=== PATIENT | male | born 1985 | race African-American/Black ===

== ENCOUNTER 2019-11-14 22:15 | Inpatient (IN) ==
[2019-11-14] MEDS ORDERED: ACETAMINOPHEN 500 MG TAB PO STA (22:28)
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
[2019-11-14] MEDS ORDERED: SODIUM CHLORIDE 0.9% 1000ML 1,000 ML IV SCH (23:00)
[2019-11-14 23:15] LABS: Basophils # (auto) 0.02 K/uL (0-0.2); Basophils % (auto) 0.3 %; Eosinophils # (auto) 0.05 K/uL (0-0.5); Eosinophils % (auto) 0.7 %; Hematocrit (blood only) 39.8 % (42-52); Hemoglobin 13.2 g/dL (14.0-18.0); Lymphocytes % (auto) 25.4 %; Mean Corpuscular Hemoglobin 28.1 pg (25-34); Mean Corpuscular Hgb Conc 33.2 g/dL (32-36); Mean Corpuscular Volume 84.9 fL (80-100); Mean Platelet Volume 11.3 fL (7.4-10.4); Monocytes # (auto) 0.91 K/uL (0.11-0.59); Monocytes % (auto) 12.2 %; Neutrophils % (auto) 61.4 %; Platelet Count 156 K/uL (130-400); RDW Coefficient of Variation 14.9 % (11.5-14.5); Red Blood Count 4.69 M/uL (4.7-6.1); White Blood Count 7.48 K/uL (4.8-10.8)
[2019-11-14 23:21] LABS: iSTAT Creatinine 1.4 mg/dl (0.6-1.3); iSTAT Hemoglobin 14.3 g/dl (14.0-18.0); iSTAT Ionized Calcium 1.23 mmol/l (1.12-1.32); iSTAT Potassium 4.1 mmol/L (3.3-5.0)
[2019-11-14] MEDS ORDERED: IOVERSOL 100ml IV ONE (23:24)
[2019-11-14 23:32] LABS: Alanine Aminotransferase 21 U/L (12-78); Albumin Level 3.7 gm/dl (3.4-5.0); Aspartate Aminotransferase 44 U/L (15-37); BUN Creatinine Ratio 11.6 (10-20); Blood Urea Nitrogen 18 mg/dl (7-18); Calcium 9.2 mg/dl (8.5-10.1); Carbon Dioxide 30 mmol/L (21-32); Chloride 108 mmol/L (98-107); Creatinine Clr Calc Pharmacy 67.3 ml/min; Est GFR (African American) 66.3; Est GFR (Non-African American) 57.2; Glucose 79 mg/dl (70-99); Sodium 141 mmol/L (136-145)
[2019-11-14 23:36] LABS: Albumin Globulin Ratio 0.9 (0.9-2); Alkaline Phosphatase 57 U/L (45-117); Bilirubin,Total 0.5 mg/dl (0.2-1); Total Protein 7.7 gm/dl (6.4-8.2); Troponin I < 0.015 ng/ml (0-0.045)
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
[2019-11-15 00:01] LABS: Creatine Kinase 1424 U/L (39-308)
[2019-11-15] MEDS ORDERED: MoRPHine SULFATE 4 MG/ML 1 ML CARP\\VIAL IV ONE (00:13)
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
--- NOTE | 2019-11-15 03:04 | History & Physical Report ---
Date of Service November 15, 2019 Assessment & Plan (1) Pneumothorax, closed, traumatic: This patient had chest trauma via a helmet. He has most likely a lateral nondisplaced fracture of the sixth rib. He has a small pneumothorax. He is not short of breath. I would choose to keep him on the 10 L of oxygen and repeat his chest x-ray in the morning. If the pneumothorax has increased in size he will need a thoracostomy tube. History of Present Illness Chief Complaint: Right-sided chest pain Primary Care Provider: NO PCP This is a 34-year-old male who presented to the emergency room with complaint of pain on the right side of his chest after having been struck by a helmet during adult football game. He had some very mild shortness of breath. That is resolved. He has been on [address] scan and chest x-ray show small pneumothorax. There is also evidence of a lateral fracture of the sixth rib. There is no hemothorax. He has not had any fever or chills. He has had no abdominal pain. He has had no nausea or vomiting. Allergies Allergy/AdvReac Type Severity Reaction Status Date / Time No Known Allergies Allergy Mild Unverified 11/14/19 22:40 Home Medications Home Medications Medication Instructions Recorded Confirmed Type acetaminophen [Tylenol Extra 1,000 mg PO Q6H PRN 11/14/19 11/14/19 History Strength] ibuprofen 400 mg PO Q6H PRN 11/14/19 11/14/19 History Past Med/Surg History Social History Smoking Status: Never smoker Feels Safe at Home: Yes Review of Systems Review of Systems: All systems reviewed & are unremarkable except as noted in HPI & below Physical Exam Constitutional: no acute distress Respiratory: Slightly decreased breath sounds on the right but no rales or rhonchi Cardiovascular: Rate/Rhythm: regular rate and regular rhythm Gastrointestinal (Abdomen): Inspection/Auscultation: normal bowel sounds; abdomen not distended Percussion/Palpation: abdomen soft; abdomen nontender Musculoskeletal: no cyanosis or clubbing, extremities motor strength 5/5 Skin: no rashes, warm and dry Lymphatic: no cervical lymphadenopathy Results & Data Results & Data ([facility]) Vital Signs (Past 12 Hours) Vital Signs Temp Pulse Resp BP Pulse Ox 11/15/19 02:30 69 15 129/67 98 11/15/19 02:00 62 18 124/71 100 08/02/20 01:30 69 18 130/67 100 11/15/19 01:00 64 19 141/78 H 100 11/15/19 00:30 67 21 132/80 100 11/15/19 00:00 70 13 130/83 100 11/14/19 23:33 71 14 142/86 H 100 11/14/19 23:13 72 16 142/78 H 99 11/14/19 22:36 97 11/14/19 22:17 36.8 C 71 20 139/89 97 Laboratory Results 11/14/19 11/14/19 11/14/19 Range/Units 23:08 23:00 23:00 WBC 7.48 (4.8-10.8) K/uL RBC 4.69 L (4.7-6.1) M/uL Hgb 13.2 L (14.0-18.0) g/dL POC Hgb 14.3 (14.0-18.0) g/dl Hct 39.8 L (42-52) % POC Hct 42 (42-52) % MCV 84.9 (80-100) fL MCH 28.1 (25-34) pg MCHC 33.2 (32-36) g/dL RDW Std Deviation 46.0 (36.4-46.3) fL RDW Coeff of Kyaw 14.9 H (11.5-14.5) % Plt Count 156 (130-400) K/uL MPV 11.3 H (7.4-10.4) fL Immature Gran % (Auto) 0.0 % Neut % (Auto) 61.4 % Lymph % (Auto) 25.4 % Canadian % (Auto) 12.2 % Eos % (Auto) 0.7 % Baso % (Auto) 0.3 % Neut # (Auto) 4.60 (1.4-6.5) K/uL Lymph # (Auto) 1.90 (1.2-3.4) K/uL Canadian # (Auto) 0.91 H (0.11-0.59) K/uL Eos # (Auto) 0.05 (0-0.5) K/uL Baso # (Auto) 0.02 (0-0.2) K/uL Immature Gran # (Auto) 0.00 (0.00-0.02) K/uL POC Sodium 142 (135-144) mmol/L Sodium 141 (136-145) mmol/L POC Potassium 4.1 (3.3-5.0) mmol/L Potassium 4.0 (3.5-5.1) mmol/L POC Chloride 103 (101-112) mmol/L Chloride 108 H (98-107) mmol/L Carbon Dioxide 30 (21-32) mmol/L POC Total CO2 27 (24-31) mmol/L Anion Gap 3.0 (3-11) POC Anion Gap 17.0 (16-25) mmol/L POC BUN 18 (7-18) mg/dl BUN 18 (7-18) mg/dl Creatinine 1.54 H (0.6-1.4) mg/dl POC Creatinine 1.4 H (0.6-1.3) mg/dl Est Cr Clr Drug Dosing 67.3 ml/min Est GFR ( Amer) 66.3 Est GFR (Non-Af Amer) 57.2 BUN/Creatinine Ratio 11.6 (10-20) Glucose 79 (70-99) mg/dl POC Glucose (other) 82 (70-99) mg/dl Calcium 9.2 (8.5-10.1) mg/dl POC Ioniz Calcium Jeremiah 1.23 (1.12-1.32) mmol/l Total Bilirubin 0.5 (0.2-1) mg/dl AST 44 H (15-37) U/L ALT 21 (12-78) U/L Alkaline Phosphatase 57 (45-117) U/L Total Creatine Kinase 1424 H (39-308) U/L Troponin I < 0.015 (0-0.045) ng/ml Total Protein 7.7 (6.4-8.2) gm/dl Albumin 3.7 (3.4-5.0) gm/dl Globulin 4.0 (2.5-4.0) gm/dl Albumin/Globulin Ratio 0.9 (0.9-2) (1) Pneumothorax, closed, traumatic Encounter type: initial encounter Qualified Code(s): S27.0XXA - Traumatic pneumothorax, initial encounter
[2019-11-15] MEDS ORDERED: MoRPHine SULFATE 4 MG/ML 1 ML CARP\\VIAL IV PRN (03:10)
[2019-11-15] MEDS ORDERED: ONDANSETRON INJ 2 MG/ML 2 ML VIAL IV PRN (03:51)
--- NOTE | 2019-11-15 06:23 | CT Scan Report ---
CT abd pelvis IV con only CLINICAL HISTORY: Abdominal pain status post trauma COMPARISON STUDY: None. TECHNIQUE: Patient was scanned in a dynamic helical fashion during intravenous administration of 93 c c of Optiray 320 A dose lowering technique was utilized adhering to the principles of ALARA. CT DOSE: 621.37 mGy.cm FINDINGS: Lower chest: There is a right anterior pneumothorax with pleural separation of 18 mm. There is mild r ight lower lobe and right middle lobe atelectatic change. Liver: The contrast-enhanced liver is normal in size, contour, and attenuation. There is no intrahepa tic biliary ductal dilatation. The hepatic veins and portal veins are patent. Gallbladder: Unremarkable. Spleen: Normal in size and attenuation. Pancreas: Unremarkable. Adrenal glands: Unremarkable. Kidneys: There is symmetric renal cortical enhancement. The kidneys are normal in size without hydron ephrosis. Bowel: There are no transition zones indicate bowel obstruction. There is no pathologic interloop flu id. There are no extraluminal gas collections. No acute inflammatory changes are visualized. Peritoneum: There is no intraperitoneal free air or abdominal ascites. Vasculature: The abdominal aorta is normal in course and caliber. Adenopathy: None. Pelvic viscera: The bladder, and pelvic viscera are unremarkable. Skeletal structures: No destructive osseous lesions are seen. IMPRESSION: 1. Right-sided pneumothorax 2. No evidence of acute abdominal or pelvic injury ACT 112: Negative or not required by law. Electronically signed by: Rashi Bernabe M.D. 11/15/2019 6:21 AM
--- NOTE | 2019-11-15 06:45 | CT Scan Report ---
CT OF THE CHEST WITH IV CONTRAST CLINICAL HISTORY: Chest pain status post trauma TORUS OF BREATH COMPARISON STUDY: No previous studies for comparison. TECHNIQUE: Following the IV administration of 93 mL of Optiray-320, CT of the thorax was performed f rom the thoracic inlet to the lung bases. Images are reviewed in the axial, sagittal, and coronal khurram bobby. IV contrast was administered without complication. A dose lowering technique was utilized adher ing to the principles of ALARA. CT DOSE: FINDINGS: Thyroid: Imaged portions of the thyroid gland are normal in appearance. Thoracic aorta: The thoracic aorta is normal in course and caliber, noting standard 3-vessel arch emmanuelle kenny. No aneurysm or dissection is seen. Pulmonary vasculature: The pulmonary trunk is normal in caliber. There are no central filling defects identified to suggest pulmonary embolus. Note that this examination was not protocoled for the evalu ation of pulmonary emboli. HEART: The heart is normal in size and configuration, without pericardial effusion. Lungs and pleural spaces: There is a right-sided pneumothorax with maximal pleural separation of 2.5 cm. There are groundglass opacities within the right middle lobe suspicious for a pulmonary contusion . There is a tiny cystic space possibly representing a posttraumatic pneumatocele. There are no signi ficant pleural effusions. There are right lower lobe atelectatic changes. Mediastinum: There is no evidence of mediastinal hematoma. There is no CT evidence of acute aortic in jury. There is no pathologic adenopathy. Yuki: There is no evidence of pathologic hilar adenopathy Axilla: There is no evidence of pathologic axillary lymphadenopathy Upper abdomen: Partially visualized upper abdominal viscera is within normal limits. Skeletal structures: There is right-sided subcutaneous emphysema. There is a nondisplaced fracture th e right sixth rib. IMPRESSION: 1. Nondisplaced right sixth rib fracture 2. Right-sided pneumothorax with pleural separation of 25 mm 3. Suspected right middle lobe pulmonary contusion with a tiny posttraumatic pneumatocele ACT 112: Negative or not required by law. Electronically signed by: Rashi Bernabe M.D. 11/15/2019 6:44 AM
--- NOTE | 2019-11-15 06:50 | XRay Report ---
XR ribs RT min 3V w CXR1V CLINICAL HISTORY: hit in right ribs, eval trauma trauma COMPARISON STUDY: No previous studies for comparison. FINDINGS: Nondisplaced cortical fracture right sixth rib. Right-sided pneumothorax with a maximum ple ural separation of 2.2 cm. Lungs otherwise appear clear. IMPRESSION: 1. Nondisplaced cortical fracture right sixth rib. 2. Right-sided pneumothorax with a maximum pleural separation of 2.2 cm. ACT 112: Negative or not required by law. The above report was generated using voice recognition software. It may contain grammatical, syntax or spelling errors. Electronically signed by: Andre Monroe M.D. 11/15/2019 6:49 AM
--- NOTE | 2019-11-15 09:19 | XRay Report ---
XR chest 2V PA/lateral CLINICAL HISTORY: follow up CT pneumothorax COMPARISON STUDY: Earlier in the day FINDINGS: There is a right-sided hydropneumothorax. The maximum pleural separation is 24 mm at the ri ght apex, and 32 mm the right lung base. The right midlung zone airspace opacities have resolved. The re is minor blunting of the left lateral costophrenic angle.[ IMPRESSION: 1. Right-sided hydropneumothorax. The fluid component is new when compared the preceding study. The v olume of air within the pleural space is relatively similar. ACT 112: Negative or not required by law. Electronically signed by: Rashi Bernabe M.D. 11/15/2019 9:17 AM
--- NOTE | 2019-11-15 11:38 | Surgery Progress Note ---
Date of Service November 15, 2019 Assessment & Plan (1) Pneumothorax, closed, traumatic: A long discussion with the patient regarding the risks and benefits of placing a thoracostomy tube. We discussed faster expansion of the lung. He is hemodynamically stable and no respiratory distress and his pulse oximetry has been 100%. He would like to not place the tube at the present time. We will repeat the chest x-ray tomorrow. He can eat until midnight. Subjective Feels better today Much less pain No shortness of breath No nausea or vomiting Physical Exam Respiratory: normal respiratory effort; no labored breathing and does not use accessory muscles Gastrointestinal (Abdomen): normal bowel sounds, soft, nontender, no hepatosp lenomegaly Results & Data Vital Signs (Past 12 Hours) Vital Signs Temp Pulse Pulse Resp BP BP Pulse Ox 11/15/19 07:18 36.7 C 50 L 14 119/72 100 11/15/19 03:40 36.5 C 55 L 12 100 11/15/19 03:30 56 L 13 131/79 100 11/15/19 03:00 61 16 127/76 100 11/15/19 02:30 69 15 129/67 98 11/15/19 02:00 62 18 124/71 100 11/15/19 01:30 69 18 130/67 100 11/15/19 01:00 64 19 141/78 H 100 11/15/19 00:30 67 21 132/80 100 11/15/19 00:00 70 13 130/83 100 Pulse Ox 11/15/19 07:18 11/15/19 03:40 100 11/15/19 03:30 11/15/19 03:00 11/15/19 02:30 11/15/19 02:00 11/15/19 01:30 11/15/19 01:00 11/15/19 00:30 11/15/19 00:00 (1) Pneumothorax, closed, traumatic Encounter type: initial encounter Qualified Code(s): S27.0XXA - Traumatic pneumothorax, initial encounter
[2019-11-15] MEDS: ACETAMINOPHEN 500 MG TAB PO PRN ×2 (11:56→21:43)
--- NOTE | 2019-11-15 13:23 | Electrocardiogram Report ---
Test Reason : Blood Pressure : / mmHG Vent. Rate : 067 BPM Atrial Rate : 067 BPM P-R Int : 162 ms QRS Dur : 090 ms QT Int : 386 ms P-R-T Axes : 037 056 008 degrees QTc Int : 407 ms Normal sinus rhythm Voltage criteria for left ventricular hypertrophy ST elevation, consider early repolarization, pericarditis, or injury Abnormal ECG No previous ECGs available Confirmed by Palmer De La Fuente ([id number]) on 11/15/2019 1:23:20 PM Referred By: REFERRED SELF Confirmed By:Palmer De La Fuente
[2019-11-16 00:28] VITALS: O2SAT 100
[2019-11-16 06:58] VITALS: BP 122/72; PULSE 58; TEMP 97.9
--- NOTE | 2019-11-16 08:30 | XRay Report ---
XR chest 2V PA/lateral CLINICAL HISTORY: follow up pneumothorax pneumothorax COMPARISON STUDY: 11/15/2019 FINDINGS: Unchanging right basilar hydropneumothorax. Pleural separation is unchanged. Apical separat ion is also similar. Left lung is generally clear. Very slight blunting left lateral costophrenic angle. IMPRESSION: Stable exam with no change from the prior study. Stable right hydropneumothorax. ACT 112: Negative or not required by law. The above report was generated using voice recognition software. It may contain grammatical, syntax or spelling errors. Electronically signed by: Andre Monroe M.D. 11/16/2019 8:29 AM
--- NOTE | 2019-11-16 12:07 | Surgery Progress Note ---
Date of Service November 16, 2019 Assessment & Plan (1) Pneumothorax, closed, traumatic: avss hemodynamically stable CXR stable Plan: Okay for discharge home today Dr. Dobson reviewed restrictions and discharge instructions with patient. Will need CXR Saturday11/20/2019 and follow-up visit next week with Dr. Dobson. Dr. Dobson has seen and examined patient, agrees with above. Subjective feeling good, ready to go home having chest pain but controlled with Tylenol no difficulty breathing Physical Exam Constitutional: WD/WN, vitals as above no acute distress Respiratory: normal respiratory effort; no respiratory distress, no labored breathing, no retractions, does not use accessory muscles and no cough Auscultation: no crackles, no rales and no rhonchi Skin: no rashes, warm and dry Psychiatric: A+Ox3, euthymic affect Results & Data Vital Signs (Past 12 Hours) Vital Signs Temp Pulse Resp BP Pulse Ox 11/16/19 06:56 36.6 C 58 L 18 122/72 100 11/16/19 00:28 36.8 C 53 L 16 128/82 100 Diagnostic Findings XR chest 2V PA/lateral CLINICAL HISTORY: follow up pneumothorax pneumothorax COMPARISON STUDY: 11/15/2019 FINDINGS: Unchanging right basilar hydropneumothorax. Pleural separation is unchanged. Apical separation is also similar. Left lung is generally clear. Very slight blunting left lateral costophrenic angle. IMPRESSION: Stable exam with no change from the prior study. Stable right hydropneumothorax. (1) Pneumothorax, closed, traumatic Encounter type: initial encounter Qualified Code(s): S27.0XXA - Traumatic pneumothorax, initial encounter
--- NOTE | 2019-11-18 08:44 | Discharge Summary ---
Date of Service November 18, 2019 Admission HPI Per Admitting Provider This is a 34-year-old male who presented to the emergency room with complaint of pain on the right side of his chest after having been struck by a helmet during adult football game. He had some very mild shortness of breath. That is resolved. He has been on [address] scan and chest x-ray show small pneumothorax. There is also evidence of a lateral fracture of the sixth rib. There is no hemothorax. He has not had any fever or chills. He has had no abdominal pain. He has had no nausea or vomiting. Principal Diagnosis Right pneumothorax Right rib fracture, nondisplaced, 6th rib Discharge Data Allergies Allergy/AdvReac Type Severity Reaction Status Date / Time No Known Allergies Allergy Mild Unverified 11/14/19 22:40 Ordered Studies 11/14/19 22:59 CT abd pelvis IV con only Urgent CT chest w con Urgent Hospital Course (1) Pneumothorax, closed, traumatic: Patient admitted to medical/surgical floor from the emergency department for observation given right sided pneumothorax. Patient kept NPO, started on IV Morphine and IV Tylenol as needed, IV Zofran as needed, Oxygen via oxymask, and repeat CXR. Repeat CXR showed persistent right pneumothorax with hydropneumothroax compared to prior CT however stable. Patient's pain was controlled with IV Tylenol. Diet was advanced and then NPO after midnight. Repeat CXR on HD # 2 showed stable right hydropneumothorax. Patient hemodynamically stable, pain controlled, vitals stable, and no shortness of breath. Patient was discharged home on HD # 2 with repeat CXR outpatient order for Saturday11/20/2019. Close follow-up in surgical office within 1 week. Total Time Total Time Spent Total Time Spent (In Minutes): 30 Total Time Includes: Examination of the Patient, Discharge Planning, Medication Reconciliation and Other (outpatient order) Discharge Plan Discharge Items Patient Disposition: Home - Self-Care Reason For Visit: PNEUMOTHORAX Discharge Diagnosis: Right pneumothorax Activity: Per Instructions section Non-emergency contact: Surgeon Call non-emergency contact if: you have any medication questions, your symptoms worsen, your pain is not controlled, your pain is worsening, your pain is concerning for you and you have a fever Follow-up/Referrals: Andre Dobson MD [Physician] - (Office will call patient with appointment time and date) PCP,NO [Primary Care Provider] - Diet: Regular Ambulatory Orders: XR chest 2V PA/lateral (Routine) Timeframe: 4 Days Facility: [facility] - Location: Radiology Main [place] Ordered By: Shelia Stone Attending Provider Instructions: Activity Recommendations: - exercise/sex/sports limit: (nonstrenuous for at least 6 weeks or until cleared by surgeon), - driving or machine use limit: (no driving for at least 3 days) Diet: - Resume previous diet SPECIAL CARE INSTRUCTIONS: - You will need to start using the incentive spirometry (breathing device) on Saturday11/18/2019. Use device about 10 times every 1-2 hours. - Call the surgeon's office with any questions or concerns - - (ex. increased shortness of breath, chest pain, fever, chills). MEDICATIONS: - Resume previous medications unless instructed otherwise by your surgeon. - You can alternate extra strength Tylenol and Ibuprofen as needed for pain. - Ibuprofen 600 mg every 6 hours with food - Tylenol 650 mg every 6 hours as needed. FOLLOW UP VISIT: - You will need to return to hospital on Saturday11/20/2019 for repeat chest xray. Please come in morning so we can get results earlier in the day. -Please call the office to schedule a follow-up appointment next week with Dr. Ken leahy and likely repeat chest xray. Office number Pending Studies at Discharge: No Stand-Alone Forms: My [facility], Smoking Cessation Medications and DC Order Prescriptions: Continued acetaminophen [Tylenol Extra Strength] 500 mg Tablet 1,000 mg PO Q6H PRN (Reason: Pain) RF: 0 ibuprofen 200 mg Tablet 400 mg PO Q6H PRN (Reason: Pain) RF: 0 Discharge Orders: Discharge Order (Routine); Ordered 11/16/19 Ordered By: Shelia Rodriguez Admission Data Admit Date/Time: 11/15/19 10:32 Attending Provider: Andre Dobson Admit Provider: Andre Dobson Primary Care Provider: PCP,NO Other Interventions: Discharge Summary Assessment (RN) Last Done: 11/16/19 12:42 DC Date/Time DO NOT enter until pt leaves facility: 11/16/19 13:37
== END 2019-11-16 13:37 | disposition home or self-care (01) | DRG 200 ==
LOC: ED 22:15 → 3W 22:15